=== PATIENT | male | born 1950 | race Caucasian/White ===

== ENCOUNTER → 2017-03-27 | Outpatient (CLI) | payer MEDICARE ==
[~2017-03-27] MED LIST: ALLO300T2 PO; DCS100C PO; FINA5TAB PO; HYDR-3454 PO; NF-URO10 PO; SIMV20TA3 PO; VALS1TAB4 PO
--- NOTE | 2017-03-27 14:39 | Diagnostic Imaging Report ---
INDICATION: History of kidney stones. COMPARISON: 09/14/2015 FINDINGS: Single supine radiographic view of the abdomen was obtained and demonstrates nondistended loops of small bowel. There is no large collection of free intraperitoneal air. Multiple well-circumscribed extraosseous calcifications are seen projecting over the bilateral pelvis. Overall, burden is stable compared to the prior exam and is felt to most likely represent venous phleboliths. No other unexpected extraosseous calcifications or radiopaque foreign bodies are identified. Bony structures show no gross acute abnormalities. IMPRESSION: 1. Nonobstructive small bowel gas pattern. Dictated by: Dictated on workstation # [id number]
== END ==
LOC: RAD 13:35
PROVIDERS: ATTEND Urology
DX: Z87.442 Personal history of urinary calculi (principal)
CPT/HCPCS: 74000

== ENCOUNTER 2017-04-01 06:02 | Outpatient (RCR) | payer MEDICARE | END 2017-06-25 | disposition home or self-care (01) | LOC: LAB 06:02 | PROVIDERS: ATTEND Urology | DX: Z09 Encounter for follow-up examination after completed treatment for conditions other than malignant neoplasm (principal); Z87.442 Personal history of urinary calculi | CPT/HCPCS: 36415; 82140; 82340; 82507; 82570; 83735; 83945; 83986; 84105; 84133; 84300; 84392; 84560 ==

== ENCOUNTER 2018-11-09 05:00 | Outpatient (RCR) | payer MEDICARE ==
--- NOTE | 2018-10-10 12:58 | Diagnostic Imaging Report ---
Indication: History of stones and annual checkup. Time of exam: 11:06 AM Correlation is made with prior study from 03/27/2017. Bowel gas pattern is unremarkable. No definite radiopaque urinary tract calculi are detected. Pelvic calcifications appear stable and most likely representing phleboliths. Impression: Unremarkable KUB. Dictated by: Dictated on workstation # [id number]
== END 2019-01-08 | disposition home or self-care (01) ==
LOC: RAD 05:00
PROVIDERS: ATTEND Urology
DX: Z87.442 Personal history of urinary calculi (principal)
CPT/HCPCS: 36415; 74018; 82140; 82340; 82507; 82570; 83735; 83945; 83986; 84105; 84133; 84300; 84392; 84560

== ENCOUNTER 2020-03-16 12:00 | Outpatient (RCR) | payer MEDICARE ==
[~2020-03-16] VITALS: Ht 175.3 cm; Wt 74.0 kg
[2020-03-16] MEDS ORDERED: AMLO5TAB4 PO (13:59)
== END 2020-03-18 10:25 | disposition home or self-care (01) ==
LOC: PREOP 12:00
PROVIDERS: ATTEND Surgery
DX: Z01.812 Encounter for preprocedural laboratory examination (principal); Z12.11 Encounter for screening for malignant neoplasm of colon; Z20.828 Contact with and (suspected) exposure to other viral communicable diseases
CPT/HCPCS: 87635

== ENCOUNTER 2020-03-22 07:26 | Day surgery (SDC) | payer MEDICARE ==
[~2020-03-22] VITALS: Ht 175.3 cm; Wt 74.0 kg
[2020-03-22] VITALS (9 sets, daily range): BP systolic 92–155; BP diastolic 51–91
[~2020-03-22 07:26] MED LIST changes: +AMLO5TAB4 PO
[2020-03-22] MEDS ORDERED: PROPOFOL INJECTION 0 ML IV ONE (07:43)
[2020-03-22] MEDS ORDERED: MIDAZOLAM 2 MG/2 ML (VERSED) VIAL ONE (07:43)
[2020-03-22] MEDS ORDERED: LACTATED RINGERS 1,000 ML IV PRN (07:45)
[2020-03-22] MEDS ORDERED: LACTATED RINGERS 1,000 ML IV ONE (07:47)
[2020-03-22] MEDS ORDERED: PROPOFOL INJECTION 50 ML IV ONE (08:23)
[2020-03-22] MEDS ORDERED: proPOfol 200 MG/20 ML (DIPRIVAN) VIAL IV ONE ×2 (08:26→08:28)
--- NOTE | 2020-03-22 08:50 | Progress Note-Post Operative ---
Post-Operative Progess Note Surgeon (s)/Delivery Mgr (s) Surgeon LUIS MIGUEL SAUCEDO DO Delivery Mgr: na Pre-Operative Diagnosis screening colonoscopy Post-Operative Diagnosis rectal colon polyp Procedure & Operative Findings Date of Procedure 03/22/20 Procedure Performed/Findings colonoscopy c hot biopsy polypectomy Anesthesia Type per PATIENT BILLER Estimated Blood Loss Estimated blood loss (mL): none Specimens/Packing Specimens Removed rectal colon polyp LUIS MIGUEL SAUCEDO DO Mar 22, 2020 08:50
--- NOTE | 2020-03-22 08:54 | Discharge Inst-Simple/Standard ---
Discharge Inst-Standard Patient Instructions/Follow Up Plan of Care/Instructions/FU: 2 weeks Magda Fagan for possible prostate nodule. Activity as Tolerated: Yes Discharge Diet: Regular Diet LUIS MIGUEL SAUCEDO DO Mar 22, 2020 08:54
--- NOTE | 2020-03-22 12:23 | OPERATIVE REPORT ---
DATE OF SERVICE: 03/22/2020 PREOPERATIVE DIAGNOSIS: Screening colonoscopy. POSTOPERATIVE DIAGNOSES: Rectal colon polyp and possible small prostate nodule. PROCEDURE: Colonoscopy with hot biopsy polypectomy. SURGEON: Luis Miguel Man DO ANESTHESIA: Per [employer]ODUCT [employer]OM[employer]ER SALES PERSON. ESTIMATED BLOOD LOSS: None. COMPLICATIONS: None. INDICATIONS: The patient is a 70-year-old male due for screening colonoscopy. He understands risks and benefits of procedure and wished to proceed with procedure. Consent was signed in the chart. DESCRIPTION OF PROCEDURE: The patient was taken to the endoscopy suite, placed in left lateral recumbent position. Timeout was performed. Digital rectal exam was performed. No palpable polyps, masses or ulcerations. Questionable right upper prostate nodule. Scope was inserted in the rectum and advanced all the way to cecum with minimal difficulty. Prep was adequate with irrigation and suction. Scope was then slowly retracted back. No polyps, masses or ulcerations in the cecum, ascending, transverse and descending colon. No polyps, masses or ulcerations in sigmoid colon. Scope was continuously retracted back into the rectum where a polyp was present, which hot biopsy polypectomy was performed. Scope was retroflexed noting no other pathology. Scope was returned to its normal position, slowly withdrawn until completely removed. The patient tolerated procedure well without any complications. He was taken to recovery room in stable condition. RECOMMENDATIONS: The patient to follow up on biopsies in 2 weeks to discuss pathology results. We would follow up with urology regarding possible prostate nodule. We would repeat colonoscopy in five years depending upon pathology and risks versus benefits. Job ID: [id number] DocumentID: [id number] Dictated Date: 03/22/2020 08:57:20 Window Dresser Date: 03/22/2020 12:22:42 Dictated By: LUIS MIGUEL MAN DO
--- NOTE | 2020-03-22 13:16 | Anesthesia-General Post-Op ---
MAC Patient Condition Mental Status/LOC: Same as Preop Cardiovascular: Satisfactory Nausea/Vomiting: Absent Respiratory: Satisfactory Pain: Controlled Complications: Absent Post Op Complications Complications None Follow Up Care/Instructions Patient Instructions None needed. Anesthesiology Discharge Order Discharge Order Patient is doing well, no complaints, stable vital signs, no apparent adverse anesthesia problems. No complications reported per nursing. BRO KENDRICK [employer] MANAGER Mar 22, 2020 13:16
== END 2020-03-22 09:35 | disposition home or self-care (01) ==
LOC: ENDO 07:26
PROVIDERS: ATTEND Surgery
DX: Z12.11 Encounter for screening for malignant neoplasm of colon (principal); D12.8 Benign neoplasm of rectum; I10 Essential (primary) hypertension; E78.00 Pure hypercholesterolemia, unspecified; Z79.899 Other long term (current) drug therapy
CPT/HCPCS: 88305